=== PATIENT | male | born 1980 | race Caucasian/White ===

== ENCOUNTER 2022-12-10 05:30 | Day surgery (SDC) | payer OTHER ==
[~2022-12-10] VITALS: Ht 190.5 cm; Wt 178.0 kg
[2022-12-10] MEDS ORDERED: SIMETHICONE 40 MG/0.6 ML ML ONE (07:02)
[2022-12-10] MEDS ORDERED: METOCLOPRAMIDE HCL 10 MG/2 ML VIAL IVP PRN (08:15)
[2022-12-10] MEDS ORDERED: NACL 0.9% 1,000 ML IV SCH (08:15)
[2022-12-10] MEDS ORDERED: HYDROmorphone 1 MG/ML INJ. CARTRIDGE IVP PRN (08:15)
[2022-12-10] MEDS ORDERED: ONDANSETRON HCL 4 MG/2 ML VIAL IVP PRN (08:15)
[2022-12-10 12:10] VITALS: O2SAT 97
[2022-12-10 14:23] VITALS: BP_SYST 121; PULSE 61; RESP 18
== END 2022-12-10 10:35 | disposition home or self-care (01) ==
LOC: SMU 05:30 → SDS 05:30
PROVIDERS: ATTEND Internal Medicine
DX: K21.9 Gastro-esophageal reflux disease without esophagitis (principal); Z90.49 Acquired absence of other specified parts of digestive tract; Z79.899 Other long term (current) drug therapy
CPT/HCPCS: 43239; 87081; 36415; 93005; 88305; 88312; 88313; G0378